=== PATIENT | female | born 1935 | race Caucasian/White ===

== ENCOUNTER 2019-05-02 16:45 | Emergency (ER) | payer MEDICARE, BC ==
[~2019-05-02] VITALS: Ht 162.6 cm; Wt 56.8 kg
[2019-05-02 16:49] VITALS: Ht 162.6 cm; Wt 56.8 kg
[2019-05-02] MEDS ORDERED: KEFLEX500 MG PO (16:51)
[2019-05-02] MEDS ORDERED: WESTCORT 0.2% O15 GM TOPICAL (16:52)
[2019-05-02] MEDS ORDERED: ELIQUIS2.5 MG PO (16:52)
[2019-05-02] MEDS ORDERED: VITAMIN D2000 UNIT PO (16:52)
[2019-05-02 18:44] VITALS: BP 139/74
== END 2019-05-02 18:48 | disposition home or self-care (01) ==
LOC: D.ER 16:45
DX: L03.115 Cellulitis of right lower limb (principal)

== ENCOUNTER 2020-12-10 13:54 | Emergency (ER) | payer MEDICARE, BC ==
[~2020-12-10] VITALS: Ht 162.6 cm; Wt 56.8 kg
[~2020-12-10 13:54] MED LIST: ELIQUIS2.5 MG PO; KEFLEX500 MG PO; VITAMIN D2000 UNIT PO; WESTCORT 0.2% O15 GM TOPICAL
[2020-12-10 14:10] VITALS: Ht 162.6 cm; Wt 56.8 kg
[2020-12-10 16:21] LABS: CALC OSMOLALITY 272 mosm/kg (275-300); CALCIUM 8.9 mg/dL (8.5-10.1); CARBON DIOXIDE 28.8 mmol/L (21.0-32.0); CHLORIDE - SERUM 100 mmol/L (98-107); CREATININE - SERUM 1.1 mg/dL (0.6-1.3); GLUCOSE 97 mg/dL (74-106); POTASSIUM - SERUM 3.9 mmol/L (3.5-5.1); SODIUM 135 mmol/L (136-145); UREA NITROGEN 21 mg/dL (7-18); eGFR NON AFRICAN AMERICAN 50 mL/min (90-120)
[2020-12-10 16:30] LABS: BASOPHILS 0.1 % (0-2); EOSINOPHILS 0.6 % (0-7); HEMOGLOBIN 14.8 g/dL (12-16); IMMATURE GRANULOCYTES 0.3 % (0-5); LYMPHOCYTE ABS# 1.61 10x3/uL (1.18-3.74); LYMPHOCYTES 20.2 % (15-50); MCH 29.1 pg (26.0-34.0); MCHC 32.9 g/dL (31.0-37.0); MCV 88.4 fL (80.0-100.0); MEAN PLATELET VOLUME 10.5 fL (7.4-10.4); NEUTROPHIL ABS# 5.63 10x3/uL (1.56-6.13); NEUTROPHILS 70.8 % (40-80); PLATELET COUNT 188 10x3/uL (130-400); RBC 5.09 10x6/uL (4.00-5.40); RDW 14.4 % (11.5-14.5)
[2020-12-10 16:31] LABS: INR 1.13 (0.85-1.17); PROTIME 13.5 SECONDS (11.6-15.0)
[2020-12-10 16:32] LABS: APTT 27.8 SECONDS (22.8-39.4)
[2020-12-10 16:40] LABS: ALBUMIN 3.5 g/dL (3.4-5.0); ALKALINE PHOSPHATASE 90 U/L (30-120); ALT (SGPT) 27 U/L (10-68); BILIRUBIN - TOTAL 0.45 mg/dL (0.2-1.3); CKMB 2.1 U/L (0.0-3.6); CREATINE KINASE 65 UL (21-215); MAGNESIUM - SERUM 2.1 mg/dL (1.8-2.4); PROTEIN - SERUM 7.6 g/dL (6.4-8.2); THYROID STIMULATING HORMONE 3.04 uIU/mL (0.36-3.74)
[2020-12-10 16:46] LABS: TROPONIN-I < 0.017 ng/mL (0.000-0.060)
[2020-12-10 17:18] VITALS: BP 115/76
== END 2020-12-10 17:19 | disposition home or self-care (01) ==
LOC: D.ER 13:54
PROVIDERS: Emergency Medicine
DX: G45.9 Transient cerebral ischemic attack, unspecified (principal); D68.318 Other hemorrhagic disorder due to intrinsic circulating anticoagulants, antibodies, or inhibitors; R68.89 Other general symptoms and signs